=== PATIENT | female | born 1960 | race Caucasian/White ===

== ENCOUNTER 2020-02-19 13:36 | Inpatient (IN) | payer MEDICARE, MEDICAID ==
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
[2020-02-19 14:52] LABS: PTT,PARTIAL THROMBOPLSTIN TIME 25.7 SEC (24.5-32.8)
[2020-02-19 15:02] LABS: CHLORIDE,CL 103 mmol/L (98-107); SODIUM,NA 141 mmol/L (136-145)
[2020-02-19] MEDS ORDERED: cefTRIAXone 1 GM in Sodium Chloride 0.9% 100 ML IV ONE (16:47)
[2020-02-19] MEDS ORDERED: Temazepam 15 MG Cap PO PRN (19:45)
[2020-02-19] MEDS ORDERED: Acetaminophen 325 MG Tab PO PRN (19:45)
[2020-02-19] MEDS ORDERED: Albuterol 0.083% 2.5 MG/3 ML Neb Soln INH PRN (19:48)
[2020-02-19] MEDS ORDERED: Albuterol/Ipratropium 3.0-0.5 MG/3 ML Neb Soln NEB PRN (19:53)
[2020-02-19] MEDS: cefTRIAXone 1 GM in Sodium Chloride 0.9% 100 ML IV SCH (20:48)
[2020-02-19] MEDS: Furosemide 40 MG/4 ML VIAL IVPUSH SCH (21:03)
[2020-02-19] MEDS: Potassium Chloride 20 MEQ Tab.ER PO SCH (21:03)
[2020-02-19] MEDS: Albuterol/Ipratropium 3.0-0.5 MG/3 ML Neb Soln NEB SCH (21:03)
[2020-02-19] MEDS: Sodium Chloride 0.9% 10 ML Syringe FLUSH PRN (21:03)
[2020-02-19] MEDS: Dextromethorphan/guaiFENesin 600-30 MG Tab.ER PO SCH (21:03)
[2020-02-19] MEDS ORDERED: Mirtazapine 30 MG Tab PO SCH (21:45)
[2020-02-20] MEDS: Albuterol/Ipratropium 3.0-0.5 MG/3 ML Neb Soln NEB SCH ×2 (01:53→08:17)
[2020-02-20] MEDS: cefTRIAXone 1 GM in Sodium Chloride 0.9% 100 ML IV SCH (05:06)
[2020-02-20] MEDS: Sodium Chloride 0.9% 10 ML Syringe FLUSH PRN ×2 (05:06→08:17)
[2020-02-20] MEDS ORDERED: Levothyroxine 112 MCG Tab PO SCH (07:30)
[2020-02-20] MEDS ORDERED: COLESTIPOL PO SCH (08:00)
[2020-02-20] MEDS ORDERED: Omeprazole 20 MG Cap.CR PO SCH (08:00)
[2020-02-20] MEDS ORDERED: Non-Formulary Medication 1 Each (Mirtazapine [Mirtazapine] 45 MG) PO SCH (08:00)
[2020-02-20] MEDS ORDERED: PARoxetine 20 MG Tab PO SCH (08:00)
[2020-02-20] MEDS ORDERED: Cholecalciferol (Vitamin D3) 25 MCG Tab PO SCH (08:00)
[2020-02-20] MEDS ORDERED: Metoprolol Succinate 25 MG Tab.ER PO SCH (08:00)
[2020-02-20 08:15] VITALS: BP 109/85; PULSE 82
[2020-02-20] MEDS: Potassium Chloride 20 MEQ Tab.ER PO SCH (08:16)
[2020-02-20] MEDS: Dextromethorphan/guaiFENesin 600-30 MG Tab.ER PO SCH (08:16)
[2020-02-20] MEDS: Furosemide 40 MG/4 ML VIAL IVPUSH SCH (08:17)
[2020-02-20 08:48] LABS: HEMOGLOBIN A1C 5.8 % (4.3-5.7)
--- NOTE | 2020-02-20 09:52 | PCM.DCSUM1 ---
Discharge Summary - Hospital Course HPI Initial Comments: See emergency room note/admission H&P Brief History: See emergency room note/admission H&P Diagnosis: Stroke: Yes Modified [place] Scale: Mod.Sev.Disability ;Unable to Walk/Attend Bodily Needs W/O Assistance Modified [place] Scale Score: 4 - Discharge Data Discharge Date: 02/20/20 Discharge Disposition: DC/Tfer to Acute Hospital 02 Condition: Fair - Referral to Home Health Primary Care Physician: Mary Montaño NP - Discharge Diagnosis/Problem(s) (1) CVA (cerebral vascular accident) SNOMED Code(s): 814945642 ICD Code: I63.9 - CEREBRAL INFARCTION, UNSPECIFIED Status: Acute Priority: High Current Visit: Yes Onset Date: ~02/20/20 Problem Details: Patient had difficulty with ambulation secondary to her right hip and leg pain yesterday with negative CT scan for hip fracture, etc.. During the course of the evening the patient began experiencing some increased right-sided spasms and weakness with change in neurological status as below. CT scan of the head this morning was negative for acute changes. Telephone consultation at 09:[address] Lopez, stroke neurologist, and Dr. Worthy, hospitalist, who do accept the patient for direct admission into their facility, with no further treatment recommendations given. MRI/MRA of the brain and neck apparently to be performed shortly after admission. Vital signs and clinical exam were stable at time of transfer. Ambulance transfer with high density talc coater operator accompaniment. Previous traumatic brain injury as per emergency room note, however no history of head injury at time of fall prior to admission. Qualifiers: CVA mechanism: unspecified Qualified Code(s): I63.9 - Cerebral infarction, unspecified (2) CHF (congestive heart failure) SNOMED Code(s): 54697019 ICD Code: I50.9 - HEART FAILURE, UNSPECIFIED Status: Acute Priority: High Current Visit: Yes Problem Details: Mild CHF with no chest pain or anginal type symptoms throughout this hospitalization, however the patient is a somewhat poor historian secondary to her baseline mental deficits.. Negative workup for acute MS to this point. Consider cardiology consultation, echocardiogram, etc. by accepting providers. Some mild hypokalemia with adjustment of her IV Lasix and potassium therapy by accepting providers. No significant CHF by clinical exam today with normal BNP. Qualifiers: Heart failure type: combined systolic and diastolic Heart failure chronicity: acute on chronic Qualified Code(s): I50.43 - Acute on chronic combined systolic (congestive) and diastolic (congestive) heart failure (3) COPD (chronic obstructive pulmonary disease) SNOMED Code(s): 28244547 ICD Code: J44.9 - CHRONIC OBSTRUCTIVE PULMONARY DISEASE, UNSPECIFIED Status: Chronic Priority: High Current Visit: Yes Problem Details: Poss ible borderline pneumonia by chest x-ray, however patient is afebrile. IV Rocephin initiated in the emergency room for her cellulitis, which should also be beneficial for any existing pneumonia. Unable to obtain a sputum specimen. Patient was treated with DuoNeb treatments during this hospitalization. No known COVID-19 exposure with consideration of rapid screen evaluation and possible d- dimer secondary to her neurological findings as above. Qualifiers: COPD type: emphysema Emphysema type: panlobular Qualified Code(s): J43.1 - Panlobular emphysema (4) Cellulitis SNOMED Code(s): 869425405 ICD Code: L03.90 - CELLULITIS, UNSPECIFIED Status: Acute Priority: High Current Visit: Yes Problem Details: As above. Wound specimen for culture and sensitivity was obtained. Qualifiers: Site of cellulitis: trunk Site of cellulitis of trunk: abdominal wall Qualified Code(s): L03.311 - Cellulitis of abdominal wall (5) Cognitive impairment SNOMED Code(s): 655296338 ICD Code: R41.89 - OTH SYMPTOMS AND SIGNS W COGNITIVE FUNCTIONS AND AWARENESS Status: Chronic Priority: Medium Current Visit: Yes Problem Details: Patient lives alone with poor ambulation, etc. at this time. Initiate PT and OT. Consider swing bed care. Patient likely has difficulties with her ADLs with care management consultation needed. (6) Hyperlipidemia SNOMED Code(s): 69524868 ICD Code: E78.5 - HYPERLIPIDEMIA, UNSPECIFIED Status: Chronic Priority: High Current Visit: Yes Problem Details: Lipid panel and glycosylated hemogl obin on 02/19 were normal. Qualifiers: Hyperlipidemia type: unspecified Qualified Code(s): E78.5 - Hyperlipidemia, unspecified (7) Mixed anxiety depressive disorder SNOMED Code(s): 363045817 ICD Code: F41.8 - OTHER SPECIFIED ANXIETY DISORDERS Status: Chronic Priority: High Current Visit: Yes Problem Details: Poor control. Medication adjustments need to be considered by accepting providers. (8) HTN, Benign hypertension SNOMED Code(s): 79946496 ICD Code: I10 - ESSENTIAL (PRIMARY) HYPERTENSION Status: Chronic Priority: Medium Current Visit: Yes Problem Details: Blood Pressures under good control during this hospitalization. Continue to observe closely secondary to her CHF as above. (9) Peptic reflux disease SNOMED Code(s): 560707272 ICD Code: K21.9 - GASTRO-ESOPHAGEAL REFLUX DISEASE WITHOUT ESOPHAGITIS Status: Chronic Priority: Medium Current Visit: Yes Problem Details: Stable by history. (10) Hypokalemia SNOMED Code(s): 22373218 ICD Code: E87.6 - HYPOKALEMIA Status: Acute Priority: Medium Current Visit: Yes Onset Date: 02/20/20 Problem Details: Medication adjustment as above by accepting providers. (11) Renal insufficiency SNOMED Code(s): 702853424, 457529370 ICD Code: N28.9 - DISORDER OF KIDNEY AND URETER, UNSPECIFIED Status: Chronic Priority: Medium Current Visit: Yes Problem Details: Mildly progressive creatinine elevation secondary to IV Lasix therapy. Continue to observe her renal status closely. - Patient Summary/Data Operative Procedure(s) Performed: None Complications: Suspected CVA as above Consults: Consultations 02/19/20 19:50 OT Evaluation and Treatment [CONS] Routine PT Evaluation and Treatment [CONS] Routine 02/19/20 19:51 Consult to Case Management/Drop Hammer Set Up Operator [CONS] Routine Stroke neurologist and hospitalist as above. Labs Pending at D/C: 1. Final Report of CT of the head on 02/20/20 2. Abdominal wound culture and sensitivity Recommended Follow-up Testing/Procedures: Per accepting providers Planned Operative Procedure(s) after DC: None Hospital Course: The patient was admitted to inpatient/acute care with aggressive treatment of his CHF, COPD, and possible beginning pneumonia. Patient did respond extremely well to this therapy, however developed strep type symptoms during the course of the evening as above. Examination difficult secondary to patient's baseline cognitive impairment, emotional status, etc.. Further workup by accepting providers with possible future swing bed care in this facility. - Patient Instructions Diet: NPO Activity: Bedrest Driving: Do Not Drive Showering/Bathing: No Showering Notify Provider of: Fever, Increased Pain, Nausea and/or Vomiting - Discharge Plan *PRESCRIPTION DRUG MONITORING PROGRAM REVIEWED*: Not Applicable *COPY OF PRESCRIPTION DRUG MONITORING REPORT IN PATIENT NIR: Not Applicable Home Medications: Home Meds Metoprolol Succinate [Toprol XL] 25 mg PO DAILY 10/18/13 [History] atorvaSTATin [Lipitor] 40 mg PO BEDTIME 10/18/13 [History] Cholecalciferol (Vitamin D3) [Vitamin D3] 1,000 unit PO DAILY 02/01/14 [History] Cranberry Fruit Extract/Vit C [Azo Cranberry Softgel] 1 each PO DAILY 09/20/15 [History] Multivitamin [Multivitamins] 1 each PO DAILY 09/20/15 [History] Lysine 1,000 mg PO ASDIRECTED PRN 01/22/16 [History] Ranitidine [Zantac] 150 mg PO TID PRN 01/22/16 [History] Colestipol [Colestipol HCl] 1 tab PO DAILY 02/19/20 [History] Levothyroxine 112 mcg PO ACBREAKFAST 02/19/20 [History] Mirtazapine 45 mg PO BEDTIME 02/19/20 [History] Omeprazole 20 mg PO DAILY 02/19/20 [History] PARoxetine HCL [Paroxetine HCl] 40 mg PO DAILY 02/19/20 [History] Potassium Chloride 10 meq PO DAILY 02/19/20 [History] Oxygen Therapy Mode: Room Air Forms: ED Department Discharge, Interfacility Transfer EMTALA Referrals: Mary Montaño NP [Primary Care Provider] - - Discharge Summary/Plan Comment DC Time >30 min.: Yes (Coordination of care ) Discharge Summary/Plan Comment: As above. Extensive precautions were given to the patient, who is in agreement with the treatment plan. Ambulance transfer with high density talc coater operator accompaniment as above. - General Info Date of Service: 02/20/20 Admission Dx/Problem (Free Text: 1. CHF 2. COPD was possible beginning pneumonia 3. Right hip pain Functional Status: Reports: Pain Controlled, Tolerating Diet, Urinating, New Symptoms (Right hemiparesisnew), Incentive Spirometry. Denies: Ambulating (Unsteady) Numeric/FACES Score: 3 - Review of Systems General: Reports: Weakness (Progressive right-sided). Denies: Fever, Fatigue, Malaise, Chills, Night Sweats, Appetite (Good) HEENT: Reports: Glasses. Denies: Dysphasia, Ear Pain, Eye Pain, Headaches, Sinus Congestion, Sore Throat, Rhinitis, Visual Changes Pulmonary: Reports: Shortness of Breath (Improved). Denies: Pleuritic Chest Pain, Cough, Hemoptysis, Wheezing Cardiovascular: Reports: Edema (Dependent). Denies: Chest Pain, Palpitations, Dyspnea on Exertion, Orthopnea, Lightheadedness Gastrointestinal: Reports: No Symptoms. Denies: Abdominal Pain, Constipation, Decreased Appetite, Diarrhea, Difficulty Swallowing, Hematochezia, Melena, Nausea, Vomiting Genitourinary: Reports: No Symptoms. Denies: Dysuria, Frequency, Burning, Urgency, Incontinence, Hematuria, Flank Pain Musculoskeletal: Reports: Leg Pain (Right hip). Denies: Neck Pain, Shoulder Pain, Arm Pain, Back Pain Skin: Reports: Other (Stable multiple abrasions and abdominal ulcer). Denies: Diaphoresis Neurological: Reports: Confusion (Borderline with baseline mental/cognition deficit), Numbness (Right-sided), Paresthesia (As above), Tingling, Trouble Speaking (Baseline?), Difficulty Walking, Weakness (Right-sided), Gait Disturbance. Denies: Dizziness, Headache, Seizure, Syncope Psychiatric: Reports: Confusion, Depression (Moderate), Anxiety (Moderate). Denies: Agitation, Cravings, Hallucinations - Patient Data Vitals - Most Recent: Last Vital Signs Temp 36.7 C 02/20/20 08:00 Pulse 82 02/20/20 08:16 Resp 20 02/20/20 08:00 BP 109/85 02/20/20 08:16 Pulse Ox 95 02/20/20 08:00 Vital Signs - 24 hr 02/19/20 02/19/20 02/19/20 14:03 20:00 23:12 Temperature [ 36.6 C 36.8 C Oral] Temperature [ 36.8 C Temporal] Pulse, Peripheral Pulse, 79 74 82 Peripheral [ Left Pulse Oximetry] Respiratory 20 14 20 Rate Blood Pressure Blood Pressure 131/69 117/67 122/65 [Right Upper Arm] O2 Sat by Pulse 96 94 L 95 Oximetry 02/20/20 02/20/20 02/20/20 04:00 08:00 08:16 Temperature [ 36.9 C 36.7 C Oral] Temperature [ Temporal] Pulse, 82 Peripheral Pulse, 80 82 Peripheral [ Left Pulse Oximetry] Respiratory 20 20 Rate Blood Pressure 109/85 Blood Pressure 120/72 109/85 [Right Upper Arm] O2 Sat by Pulse 97 95 Oximetry Weight - Most Recent: 98.43 kg I&O - Last 24 hours: Intake & Output 02/19/20 02/20/20 02/20/20 22:59 06:59 14:59 Intake Total 400 Output Total 900 Balance -500 Imaging Impressions - Last 24 hrs: alarm security or surveillance monitor shows a normal sinus rhythm with rate in the 90s with no ectopy or arrhythmia Chest x-ray, portable, on 02/19/20 indicates some COPD changes with some possible mild centralized CHF and/or additional possible pulmonary infiltrates. Cardiomegaly with no pneumothorax, etc. X-rays of the pelvis, one view, and 2 lateral views of the right hip, on 02/19/20 shows no evidence of fracture with moderate osteoarthritic changes. CT of the right hip on 02/19/20 shows osteoarthritic changes with no fracture. Telephone consultation at 09:20 hours with the radiology department at [facility]. Preliminary verbal report of noncontrast CT scan of the head was negative for acute changes. Lab Results - Last 24 hrs: Laboratory Results - last 24 hr 02/19/20 02/19/20 02/19/20 Range/Units 14:30 14:30 14:30 WBC 11.4 H (4.0-10.2) K/uL RBC 4.52 (3.77-5.09) M/uL Hgb 12.9 (11.7-15.5) g/dL Hct 39.4 (34.0-46.0) % MCV 87.2 (84.0-98.0) fL MCH 28.5 (28.2-33.3) pg MCHC 32.7 (31.7-36.0) g/dL RDW 13.8 (11.2-14.1) % Plt Count 230 (150-350) K/uL Neut % (Auto) 74.1 (45.0-80.0) % Lymph % (Auto) 12.6 (10.0-50.0) % Kendall % (Auto) 8.2 (2.0-14.0) % Eos % (Auto) 4.0 (0.0-5.0) % Baso % (Auto) 1.1 (0.0-2.0) % Neut # (Auto) 8.43 H (1.40-7.00) K/uL Lymph # (Auto) 1.43 (0.50-3.50) K/uL [place] # (Auto) 0.93 (0.00-1.00) K/uL Eos # (Auto) 0.45 (0.00-0.50) K/uL Baso # (Auto) 0.12 (0.00-0.20) K/uL PT 10.0 (9.5-12.0) SEC INR 1.0 APTT 25.7 (24.5-32.8) SEC Sodium 141 (136-145) mmol/L Potassium 3.7 (3.5-5.1) mmol/L Chloride 103 (98-107) mmol/L Carbon Dioxide 31.4 (21.0-32.0) mmol/L BUN 15 (7-18) mg/dL Creatinine 1.19 H (0.51-1.17) mg/dL Est Cr Clr Drug Dosing TNP Estimated GFR (MDRD) 47 mL/min Glucose 108 H (74-106) mg/dL Hemoglobin A1c (4.3-5.7) % Calcium 9.4 (8.5-10.1) mg/dL Magnesium 2.1 (1.8-2.4) mg/dL Total Bilirubin 0.5 (0.2-1.0) mg/dL AST 24 (15-37) U/L ALT 28 (12-78) U/L Alkaline Phosphatase 203 H (46-116) IU/L Creatine Kinase 57 (26-308) U/L Creatine Kinase Index 0.9 (0.0-2.5) % CK-MB (CK-2) 0.50 (0.00-3.60) ng/mL Troponin I 0.000 (0.000-0.056) ng/mL NT-Pro-B Natriuret Pep 109 (0-125) pg/mL Total Protein 7.7 (6.4-8.2) g/dL Albumin 3.6 (3.4-5.0) g/dL Triglycerides (30-150) mg/dL Cholesterol (100-200) mg/dL LDL Cholesterol, Calc (0-100) mg/dL HDL Cholesterol (40-60) mg/dL 02/20/20 02/20/20 02/20/20 Range/Units 07:10 07:10 07:10 WBC 9.9 (4.0-10.2) K/uL RBC 4.27 (3.77-5.09) M/uL Hgb 12.1 (11.7-15.5) g/dL Hct 37.9 (34.0-46.0) % MCV 88.8 (84.0-98.0) fL MCH 28.3 (28.2-33.3) pg MCHC 31.9 (31.7-36.0) g/dL RDW 14.2 H (11.2-14.1) % Plt Count 209 (150-350) K/uL Neut % (Auto) 73.6 (45.0-80.0) % Lymph % (Auto) 12.8 (10.0-50.0) % Kendall % (Auto) 9.2 (2.0-14.0) % Eos % (Auto) 3.5 (0.0-5.0) % Baso % (Auto) 0.9 (0.0-2.0) % Neut # (Auto) 7.28 H (1.40-7.00) K/uL Lymph # (Auto) 1.27 (0.50-3.50) K/uL [place] # (Auto) 0.91 (0.00-1.00) K/uL Eos # (Auto) 0.35 (0.00-0.50) K/uL Baso # (Auto) 0.09 (0.00-0.20) K/uL PT (9.5-12.0) SEC INR APTT (24.5-32.8) SEC Sodium 143 (136-145) mmol/L Potassium 3.4 L (3.5-5.1) mmol/L Chloride 102 (98-107) mmol/L Carbon Dioxide 32.3 H (21.0-32.0) mmol/L BUN 18 (7-18) mg/dL Creatinine 1.34 H (0.51-1.17) mg/dL Est Cr Clr Drug Dosing 34.95 Estimated GFR (MDRD) 41 mL/min Glucose 104 (74-106) mg/dL Hemoglobin A1c 5.8 H (4.3-5.7) % Calcium 9.3 (8.5-10.1) mg/dL Magnesium (1.8-2.4) mg/dL Total Bilirubin 0.5 (0.2-1.0) mg/dL AST 22 (15-37) U/L ALT 25 (12-78) U/L Alkaline Phosphatase 188 H (46-116) IU/L Creatine Kinase 273 (26-308) U/L Creatine Kinase Index 1.3 (0.0-2.5) % CK-MB (CK-2) 3.50 (0.00-3.60) ng/mL Troponin I 0.000 (0.000-0.056) ng/mL NT-Pro-B Natriuret Pep 52 (0-125) pg/mL Total Protein 7.2 (6.4-8.2) g/dL Albumin 3.4 (3.4-5.0) g/dL Triglycerides 115 (30-150) mg/dL Cholesterol 200 (100-200) mg/dL LDL Cholesterol, Calc 117 H (0-100) mg/dL HDL Cholesterol 60 (40-60) mg/dL Laboratory Tests 02/19/20 02/19/20 02/19/20 Range/Units 14:30 14:30 14:30 WBC 11.4 H (4.0-10.2) K/uL RBC 4.52 (3.77-5.09) M/uL Hgb 12.9 (11.7-15.5) g/dL Hct 39.4 (34.0-46.0) % MCV 87.2 (84.0-98.0) fL MCH 28.5 (28.2-33.3) pg MCHC 32.7 (31.7-36.0) g/dL RDW 13.8 (11.2-14.1) % Plt Count 230 (150-350) K/uL Neut % (Auto) 74.1 (45.0-80.0) % Lymph % (Auto) 12.6 (10.0-50.0) % Kend[place] % (Auto) 8.2 (2.0-14.0) % Eos % (Auto) 4.0 (0.0-5.0) % Baso % (Auto) 1.1 (0.0-2.0) % Neut # (Auto) 8.43 H (1.40-7.00) K/uL Lymph # (Auto) 1.43 (0.50-3.50) K/uL [place] # (Auto) 0.93 (0.00-1.00) K/uL Eos # (Auto) 0.45 (0.00-0.50) K/uL Baso # (Auto) 0.12 (0.00-0.20) K/uL PT 10.0 (9.5-12.0) SEC INR 1.0 APTT 25.7 (24.5-32.8) SEC Sodium 141 (136-145) mmol/L Potassium 3.7 (3.5-5.1) mmol/L Chloride 103 (98-107) mmol/L Carbon Dioxide 31.4 (21.0-32.0) mmol/L BUN 15 (7-18) mg/dL Creatinine 1.19 H (0.51-1.17) mg/dL Est Cr Clr Drug Dosing TNP Estimated GFR (MDRD) 47 mL/min Glucose 108 H (74-106) mg/dL Hemoglobin A1c (4.3-5.7) % Calcium 9.4 (8.5-10.1) mg/dL Magnesium 2.1 (1.8-2.4) mg/dL Total Bilirubin 0.5 (0.2-1.0) mg/dL AST 24 (15-37) U/L ALT 28 (12-78) U/L Alkaline Phosphatase 203 H (46-116) IU/L Creatine Kinase 57 (26-308) U/L Creatine Kinase Index 0.9 (0.0-2.5) % CK-MB (CK-2) 0.50 (0.00-3.60) ng/mL Troponin I 0.000 (0.000-0.056) ng/mL NT-Pro-B Natriuret Pep 109 (0-125) pg/mL Total Protein 7.7 (6.4-8.2) g/dL Albumin 3.6 (3.4-5.0) g/dL Triglycerides (30-150) mg/dL Cholesterol (100-200) mg/dL LDL Cholesterol, Calc (0-100) mg/dL HDL Cholesterol (40-60) mg/dL 02/20/20 02/20/20 02/20/20 Range/Units 07:10 07:10 07:10 WBC 9.9 (4.0-10.2) K/uL RBC 4.27 (3.77-5.09) M/uL Hgb 12.1 (11.7-15.5) g/dL Hct 37.9 (34.0-46.0) % MCV 88.8 (84.0-98.0) fL MCH 28.3 (28.2-33.3) pg MCHC 31.9 (31.7-36.0) g/dL RDW 14.2 H (11.2-14.1) % Plt Count 209 (150-350) K/uL Neut % (Auto) 73.6 (45.0-80.0) % Lymph % (Auto) 12.8 (10.0-50.0) % Kendall % (Auto) 9.2 (2.0-14.0) % Eos % (Auto) 3.5 (0.0-5.0) % Baso % (Auto) 0.9 (0.0-2.0) % Neut # (Auto) 7.28 H (1.40-7.00) K/uL Lymph # (Auto) 1.27 (0.50-3.50) K/uL [place]all # (Auto) 0.91 (0.00-1.00) K/uL Eos # (Auto) 0.35 (0.00-0.50) K/uL Baso # (Auto) 0.09 (0.00-0.20) K/uL PT (9.5-12.0) SEC INR APTT (24.5-32.8) SEC Sodium 143 (136-145) mmol/L Potassium 3.4 L (3.5-5.1) mmol/L Chloride 102 (98-107) mmol/L Carbon Dioxide 32.3 H (21.0-32.0) mmol/L BUN 18 (7-18) mg/dL Creatinine 1.34 H (0.51-1.17) mg/dL Est Cr Clr Drug Dosing 34.95 Estimated GFR (MDRD) 41 mL/min Glucose 104 (74-106) mg/dL Hemoglobin A1c 5.8 H (4.3-5.7) % Calcium 9.3 (8.5-10.1) mg/dL Magnesium (1.8-2.4) mg/dL Total Bilirubin 0.5 (0.2-1.0) mg/dL AST 22 (15-37) U/L ALT 25 (12-78) U/L Alkaline Phosphatase 188 H (46-116) IU/L Creatine Kinase 273 (26-308) U/L Creatine Kinase Index 1.3 (0.0-2.5) % CK-MB (CK-2) 3.50 (0.00-3.60) ng/mL Troponin I 0.000 (0.000-0.056) ng/mL NT-Pro-B Natriuret Pep 52 (0-125) pg/mL Total Protein 7.2 (6.4-8.2) g/dL Albumin 3.4 (3.4-5.0) g/dL Triglycerides 115 (30-150) mg/dL Cholesterol 200 (100-200) mg/dL LDL Cholesterol, Calc 117 H (0-100) mg/dL HDL Cholesterol 60 (40-60) mg/dL SYED Results - Last 24 hrs: Microbiology 02/19/20 14:10 Gram Stain - Final Abdomen - Wound - Superficial Med Orders - Current: Current Medications Acetaminophen (Tylenol) 650 mg PO Q4H PRN PRN Reason: Pain Last Admin: 02/19/20 23:08 Dose: 650 mg Documented by: Albuterol (Proventil Neb Soln) 2.5 mg INH Q2H PRN PRN Reason: SHORTNESS OF BREATH Albuterol/Ipratropium (Duoneb 3.0-0.5 Mg/3 Ml) 3 ml NEB Q6HRRT [facility] Last Admin: 02/20/20 08:17 Dose: 3 ml Documented by: Albuterol/Ipratropium (Duoneb 3.0-0.5 Mg/3 Ml) 3 ml NEB Q4HRRT PRN PRN Reason: Dyspnea Atorvastatin Calcium (Lipitor) 40 mg PO BEDTIME [facility] Cholecalciferol (Vitamin D3) 25 mcg PO DAILY [facility] Last Admin: 02/20/20 08:16 Dose: 25 mcg Documented by: Furosemide (Lasix) 40 mg IVPUSH BID [facility] Last Admin: 02/20/20 08:17 Dose: 40 mg Documented by: Guaifenesin/Dextromethorphan (Mucinex Dm Er 600-30 Mg) 1 tab PO BID [facility] Last Admin: 02/20/20 08:16 Dose: 1 tab Documented by: Ceftriaxone Sodium 1 gm/ (Sodium Chloride) 100 mls @ 200 mls/hr IV Q12H [facility] Last Admin: 02/20/20 05:06 Dose: 200 mls/hr Documented by: Levothyroxine Sodium (Levothyroxine) 112 mcg PO ACBREAKFAST [facility] Last Admin: 02/20/20 08:17 Dose: 112 mcg Documented by: Metoprolol Succinate (Toprol Xl) 25 mg PO DAILY [facility] Last Admin: 02/20/20 08:16 Dose: 25 mg Documented by: Mirtazapine (Remeron) 45 mg PO BEDTIME [facility] Last Admin: 02/19/20 22:17 Dose: 45 mg Documented by: Non-Formulary Medication (Colestipol) 1 tab PO DAILY [facility] Omeprazole (Omeprazole) 20 mg PO DAILY [facility] Last Admin: 02/20/20 08:16 Dose: 20 mg Documented by: Paroxetine HCl (Paxil) 40 mg PO DAILY [facility] Last Admin: 02/20/20 08:17 Dose: 40 mg Documented by: Potassium Chloride (Klor-Con M20) 20 meq PO BID [facility] Last Admin: 02/20/20 08:16 Dose: 20 meq Documented by: Sodium Chloride (Saline Flush) 10 ml FLUSH Q12HR PRN PRN Reason: Keep Vein Open Last Admin: 02/20/20 08:17 Dose: 10 ml Documented by: Temazepam (Restoril) 15 mg PO BEDTIME PRN PRN Reason: Insomnia Last Admin: 02/19/20 23:09 Dose: 15 mg Documented by: Discontinued Medications Ceftriaxone Sodium 1 gm/ (Sodium Chloride) 100 mls @ 200 mls/hr IV ONETIME ONE Stop: 02/19/20 17:16 Last Admin: 02/19/20 16:53 Dose: 200 mls/hr Documented by: Non-Formulary Medication (Mirtazapine [Mirtazapine]) 45 mg PO DAILY LEDA - Exam Quality Assessment: Reports: DVT Prophylaxis General: Reports: Alert, No Acute Distress. Denies: Oriented (Oriented 2) HEENT: Reports: Pupils Equal, Pupils Reactive, EOMI, Mucous Membr. Moist/[place]. Denies: Scleral Icterus Neck: Reports: Supple, Trachea Midline, No JVD, No Thyromegaly, +2 Carotid Pulse wo Bruit. Denies: Lymphadenopathy Lungs: Reports: Clear to Auscultation, Normal Respiratory Effort. Denies: Rub Cardiovascular: Reports: Regular Rate, Regular Rhythm, No Murmurs. Denies: Gallops, Rubs GI/Abdominal Exam: Normal Bowel Sounds, Soft, Non-Tender, No Organomegaly, No Distention, No Abnormal Bruit, No Mass, Pelvis Stable, Other (Obese; stable grade 2, 1 cm in diameter incisional ulceration with no acute drainage. Moderate obesity). No: Guarding (Female) Exam: Deferred Rectal (Female) Exam: Deferred Back Exam: Reports: Normal Inspection, Full Range of Motion. Denies: CVA Tenderness (L), CVA Tenderness (R), Muscle Spasm Extremities: Pedal Edema (Trace+1 bilateral pedal/pretibial edema), Limited Range of Motion (Right hip secondary to discomfort with no instability, crepit ation, etc.). No: Heber's Sign Skin: Reports: Other (Abdominal ulcer as above with multiple areas of vitiligo and superficial abrasion/ulcerations as per emergency room note) Wound/Incisions: Reports: Dressing Dry and Intact, No Drainage, Erythema Improving Neurological: Reports: Other (Mild to moderate right-sided hemiparesis with dystaxia, confusion, and positive right sided Babinski's. Patient unable to perform right-sided finger to nose test. Borderline specificity. No tongue deviation, etc.) Psy/Mental Status: Reports: Alert, Anxious (Moderate), Depressed (Moderate). Denies: Agitated, Hallucinations, Withdrawal Symptoms EKG INTERPRETATION EKG Date: 02/20/20 Time: 07:24 Rhythm: NSR Rate (Beats/Min): 79 [place]: Normal (Left) P-Wave: Enlarged (Diffuse biphasic- mild) QRS: RBBB (0.10 seconds representing a stable borderline incomplete right bundle branch block) ST-T: Other (Stable T-wave and inversions in lead 3 and V1 with possible extension of previous nonspecific T-wave inversions from leads V4V6 to V2.) QT: Prolonged (426/488 ms) DC/PQ Interval: 0.13 seconds representing a short DC interval with no delta waves noted. Poor R-wave progression in the anterior leads. Comparison: Change From Previous EKG (As above since 02/19/20) EKG Interpretation Comments: 1. Possible anterolateral cardiac ischemia 2. Short DC interval 3. Incomplete right bundle branch block 4. Left atrial enlargement
[2020-02-20] MEDS ORDERED: atorvaSTATin 40 MG Tab PO SCH (20:00)
== END 2020-02-20 10:45 | DRG 291 ==
LOC: LL.ED 13:36 → LL.MS 17:00 → UNDOADMIN 17:00 → LL.MS 19:41 → UNDODISIN 02-20 10:45
PROVIDERS: ADMIT Family Medicine; ATTEND Family Medicine
DX: I13.0 Hypertensive heart and chronic kidney disease with heart failure and stage 1 through stage 4 chronic kidney disease, or unspecified chronic kidney disease (principal); I50.43 Acute on chronic combined systolic (congestive) and diastolic (congestive) heart failure; J18.9 Pneumonia, unspecified organism; L03.311 Cellulitis of abdominal wall; N18.9 Chronic kidney disease, unspecified; E03.9 Hypothyroidism, unspecified; I25.10 Atherosclerotic heart disease of native coronary artery without angina pectoris; J43.1 Panlobular emphysema; E78.5 Hyperlipidemia, unspecified; G31.84 Mild cognitive impairment of uncertain or unknown etiology; H54.7 Unspecified visual loss; I42.9 Cardiomyopathy, unspecified; E78.00 Pure hypercholesterolemia, unspecified; Z87.01 Personal history of pneumonia (recurrent); G47.33 Obstructive sleep apnea (adult) (pediatric); J84.10 Pulmonary fibrosis, unspecified; K44.9 Diaphragmatic hernia without obstruction or gangrene; M19.90 Unspecified osteoarthritis, unspecified site; K57.30 Diverticulosis of large intestine without perforation or abscess without bleeding; G89.29 Other chronic pain; M54.9 Dorsalgia, unspecified; E05.90 Thyrotoxicosis, unspecified without thyrotoxic crisis or storm; E66.9 Obesity, unspecified; F41.8 Other specified anxiety disorders; M25.551 Pain in right hip; Z90.79 Acquired absence of other genital organ(s); Z90.722 Acquired absence of ovaries, bilateral; Z87.891 Personal history of nicotine dependence; F10.21 Alcohol dependence, in remission; F15.21 Other stimulant dependence, in remission; Z88.1 Allergy status to other antibiotic agents; Z79.890 Hormone replacement therapy; K21.9 Gastro-esophageal reflux disease without esophagitis; E87.6 Hypokalemia; Z79.899 Other long term (current) drug therapy; Z90.49 Acquired absence of other specified parts of digestive tract; Z90.710 Acquired absence of both cervix and uterus
CPT/HCPCS: 36415; 71045; 73502; 73700; 80053; 82550; 82553; 83735; 83880; 84484; 85025; 85610; 85730; 87070; 87205; 93005; J0696; J7050; 51702; 70450; 80061; 83036; 87077; 94640; 99285-25; A9270-GY; J1940; J7620-GY

== ENCOUNTER 2020-08-16 08:45 | Emergency (ER) | payer MEDICARE, MEDICAID ==
[2020-08-16] MEDS ORDERED: Sodium Chloride 0.9% 1,000 ML IV ONE (08:50)
[2020-08-16] MEDS ORDERED: Sodium Chloride 0.9% 10 ML Syringe FLUSH PRN (08:51)
[2020-08-16 09:13] VITALS: PULSE 73
[2020-08-16 09:29] VITALS: BP 113/62
[2020-08-16 09:36] LABS: CHLORIDE,CL 105 mmol/L (98-107); SODIUM,NA 140 mmol/L (136-145)
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
== END 2020-08-16 10:35 | disposition home or self-care (01) ==
LOC: LL.ED 08:45
DX: R06.02 Shortness of breath (principal); R05 Cough; R50.9 Fever, unspecified; I11.0 Hypertensive heart disease with heart failure; I50.9 Heart failure, unspecified; I25.10 Atherosclerotic heart disease of native coronary artery without angina pectoris; E78.00 Pure hypercholesterolemia, unspecified; J44.9 Chronic obstructive pulmonary disease, unspecified; F41.9 Anxiety disorder, unspecified; F32.9 Major depressive disorder, single episode, unspecified; E66.9 Obesity, unspecified; E05.90 Thyrotoxicosis, unspecified without thyrotoxic crisis or storm; Z90.49 Acquired absence of other specified parts of digestive tract; Z90.710 Acquired absence of both cervix and uterus; Z20.822 Contact with and (suspected) exposure to COVID-19; Z88.1 Allergy status to other antibiotic agents; Z79.82 Long term (current) use of aspirin; Z79.899 Other long term (current) drug therapy
CPT/HCPCS: 36415; 71045; 80053; 83605; 85025; 87804; 99283; 99285-25; J7030; U0002

== ENCOUNTER 2020-08-24 09:06 | Emergency (ER) | payer MEDICARE, MEDICAID ==
[2020-08-24] MEDS ORDERED: Sodium Chloride 0.9% 1,000 ML IV ONE (09:20)
[2020-08-24] MEDS ORDERED: Norflurane/HFc 245FA Medium Stream Spray 103.5 ML Can TOP PRN (10:07)
[2020-08-24] MEDS ORDERED: Iopamidol 755 Mg/ML 100 ML Bottle IVPUSH STA (10:45)
[2020-08-24] MEDS ORDERED: Iopamidol 755 Mg/ML 100 ML Bottle ONE (10:48)
[2020-08-24 10:53] VITALS: BP 104/68; PULSE 92
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
== END 2020-08-24 12:15 | disposition home or self-care (01) ==
LOC: LL.ED 09:06
DX: R05 Cough (principal); R19.7 Diarrhea, unspecified; R11.2 Nausea with vomiting, unspecified; R10.9 Unspecified abdominal pain; I11.0 Hypertensive heart disease with heart failure; I50.9 Heart failure, unspecified; I25.10 Atherosclerotic heart disease of native coronary artery without angina pectoris; E78.00 Pure hypercholesterolemia, unspecified; J44.9 Chronic obstructive pulmonary disease, unspecified; E66.9 Obesity, unspecified; Z88.1 Allergy status to other antibiotic agents; Z79.82 Long term (current) use of aspirin; Z79.899 Other long term (current) drug therapy; Z68.42 Body mass index [BMI] 45.0-49.9, adult
CPT/HCPCS: 36415; 71275; 80053; 83690; 85025; 85379; 99283; 99284-25; J7030; Q9967

== ENCOUNTER 2022-07-02 21:13 | Emergency (ER) | payer MEDICARE, MEDICAID ==
[2022-07-02] MEDS ORDERED: Meclizine 25 MG Tab PO ONE (22:44)
[2022-07-02 22:51] VITALS: BP 110/77; PULSE 66
== END 2022-07-02 23:00 | disposition home or self-care (01) ==
LOC: LL.ED 21:13
DX: R42 Dizziness and giddiness (principal); I25.10 Atherosclerotic heart disease of native coronary artery without angina pectoris; I11.0 Hypertensive heart disease with heart failure; I50.9 Heart failure, unspecified; E78.00 Pure hypercholesterolemia, unspecified; J44.9 Chronic obstructive pulmonary disease, unspecified; M19.90 Unspecified osteoarthritis, unspecified site; E03.9 Hypothyroidism, unspecified; E66.9 Obesity, unspecified; Z88.1 Allergy status to other antibiotic agents; Z79.82 Long term (current) use of aspirin; Z79.899 Other long term (current) drug therapy
CPT/HCPCS: 99283; 99284; A9270-GY

== ENCOUNTER 2022-09-28 10:34 | Observation (INO) | payer MEDICARE, MEDICAID ==
[2022-09-28 11:31] LABS: RESPIRATORY SYNCYTIAL VIR NAA NEGATIVE (NEGATIVE)
[2022-09-28 11:32] LABS: CORONAVIRUS COVID-19 NAA POSITIVE (NEGATIVE)
[2022-09-28 11:58] LABS: ANION GAP 15.1 meq/L (7-15); CHLORIDE,CL 101 mmol/L (98-107); ESTIMATED GFR 50 mL/min (>=60); SODIUM,NA 140 mmol/L (136-145)
[2022-09-28] MEDS ORDERED: Albuterol/Ipratropium 3.0-0.5 MG/3 ML Neb Soln NEB PRN (12:46)
[2022-09-28] MEDS ORDERED: Sodium Chloride 0.9% 10 ML Syringe FLUSH PRN (12:46)
[2022-09-28] MEDS ORDERED: Magnesium Hydroxide 400 MG/5 ML Susp 30 ML Cup PO PRN (12:46)
[2022-09-28] MEDS ORDERED: Ondansetron 4 MG Tab.DIS PO PRN (12:46)
[2022-09-28] MEDS ORDERED: Docusate Sodium 100 MG Cap PO PRN (12:50)
[2022-09-28] MEDS ORDERED: Baclofen 10 MG Tab PO PRN (12:50)
[2022-09-28] MEDS ORDERED: Potassium Chloride 10 MEQ Tab.ER PO ONE (13:41)
[2022-09-28] MEDS ORDERED: Diazepam 5 MG Tab PO PRN (15:34)
[2022-09-28] MEDS ORDERED: Potassium Chloride 10 MEQ Tab.ER ONE (16:04)
[2022-09-28] MEDS: Acetaminophen 325 MG Tab PO PRN ×2 (16:22→21:22)
[2022-09-28] MEDS ORDERED: hydrOXYzine HCl 25 MG Tab PO SCH (18:00)
[2022-09-28] MEDS: Nirmatrelvir/Ritonavir 300 MG/100 MG Dose Pack PO SCH (18:21)
[2022-09-28] MEDS ORDERED: atorvaSTATin 20 MG Tab PO SCH (20:00)
[2022-09-28] MEDS: Mirtazapine 15 MG Tab PO SCH (21:22)
[2022-09-29] MEDS ORDERED: Venlafaxine 75 MG Tab PO SCH (08:00)
[2022-09-29] MEDS ORDERED: Metoprolol Succinate 25 MG Tab.ER PO SCH (08:00)
[2022-09-29] MEDS ORDERED: COLESTIPOL PO SCH (08:00)
[2022-09-29] MEDS: Venlafaxine 75 MG Cap.ER PO SCH (09:33)
[2022-09-29] MEDS: Aspirin 81 MG Tab.Chew PO SCH (09:33)
[2022-09-29] MEDS: Omeprazole 20 MG Cap.CR PO SCH (09:33)
[2022-09-29] MEDS: Furosemide 20 MG Tab PO SCH (09:33)
[2022-09-29] MEDS: Cholecalciferol (Vitamin D3) 25 MCG Tab PO SCH (09:34)
[2022-09-29] MEDS: Levothyroxine 112 MCG Tab PO SCH (09:34)
[2022-09-29] MEDS: Potassium Chloride 10 MEQ Tab.ER PO SCH (09:34)
[2022-09-29] MEDS: metFORMIN 500 MG Tab PO SCH (09:34)
[2022-09-29] MEDS: Nirmatrelvir/Ritonavir 300 MG/100 MG Dose Pack PO SCH ×2 (09:35→17:18)
[2022-09-29] MEDS ORDERED: Sodium Chloride 0.9% 1,000 ML IV SCH (11:00)
[2022-09-29 11:26] LABS: ANION GAP 15.7 meq/L (7-15)
[2022-09-29] MEDS ORDERED: guaiFENesin/Dextromethorphan 100-10 MG/5 ML Soln 10 ML Cup PO PRN (11:30)
[2022-09-29] MEDS ORDERED: Potassium Bicarbonate/Cit Ac 20 MEQ Effervescent Tab PO ONE ×2 (11:33→20:00)
[2022-09-29] MEDS ORDERED: Potassium Bicarbonate/Cit Ac 20 MEQ Effervescent Tab ONE (15:02)
[2022-09-29] MEDS: Enoxaparin 40 MG/0.4 ML Syringe SUBCUT SCH (15:20)
[2022-09-29] MEDS: Acetaminophen 325 MG Tab PO PRN (19:35)
[2022-09-29] MEDS: Mirtazapine 15 MG Tab PO SCH (19:36)
[2022-09-29] MEDS: Benzonatate 100 MG Cap PO PRN (19:36)
[2022-09-30] MEDS: Venlafaxine 75 MG Cap.ER PO SCH (07:51)
[2022-09-30] MEDS: Aspirin 81 MG Tab.Chew PO SCH (07:51)
[2022-09-30] MEDS: Omeprazole 20 MG Cap.CR PO SCH (07:52)
[2022-09-30] MEDS: Furosemide 20 MG Tab PO SCH (07:53)
[2022-09-30] MEDS: Levothyroxine 112 MCG Tab PO SCH (07:53)
[2022-09-30] MEDS: Cholecalciferol (Vitamin D3) 25 MCG Tab PO SCH (07:53)
[2022-09-30] MEDS: Potassium Chloride 10 MEQ Tab.ER PO SCH (07:54)
[2022-09-30] MEDS: metFORMIN 500 MG Tab PO SCH (07:54)
[2022-09-30] MEDS: Enoxaparin 40 MG/0.4 ML Syringe SUBCUT SCH (07:54)
[2022-09-30] MEDS: Nirmatrelvir/Ritonavir 300 MG/100 MG Dose Pack PO SCH ×2 (08:01→18:18)
[2022-09-30] MEDS ORDERED: Potassium Bicarbonate/Cit Ac 20 MEQ Effervescent Tab PO ONE (10:00)
[2022-09-30] MEDS: Benzonatate 100 MG Cap PO PRN (20:15)
[2022-09-30] MEDS: Mirtazapine 15 MG Tab PO SCH (20:15)
[2022-09-30] MEDS: Acetaminophen 325 MG Tab PO PRN (20:15)
[2022-10-01] MEDS: Venlafaxine 75 MG Cap.ER PO SCH (08:36)
[2022-10-01] MEDS: Enoxaparin 40 MG/0.4 ML Syringe SUBCUT SCH (08:36)
[2022-10-01] MEDS: Omeprazole 20 MG Cap.CR PO SCH (08:36)
[2022-10-01] MEDS: Aspirin 81 MG Tab.Chew PO SCH (08:36)
[2022-10-01] MEDS: Potassium Chloride 10 MEQ Tab.ER PO SCH (08:36)
[2022-10-01] MEDS: Cholecalciferol (Vitamin D3) 25 MCG Tab PO SCH (08:37)
[2022-10-01] MEDS: Furosemide 20 MG Tab PO SCH (08:37)
[2022-10-01] MEDS: Levothyroxine 112 MCG Tab PO SCH (08:37)
[2022-10-01] MEDS: metFORMIN 500 MG Tab PO SCH (08:37)
[2022-10-01] MEDS: Nirmatrelvir/Ritonavir 300 MG/100 MG Dose Pack PO SCH (08:37)
[2022-10-01 08:47] VITALS: BP 129/84; PULSE 74
== END 2022-10-01 13:10 | disposition home health service (06) ==
LOC: LL.CLIN 10:34 → LL.MS 12:24
PROVIDERS: ADMIT Physician Assistant; ATTEND Emergency Medicine
DX: U07.1 COVID-19 (principal); E87.6 Hypokalemia; J20.9 Acute bronchitis, unspecified; M47.814 Spondylosis without myelopathy or radiculopathy, thoracic region; I11.0 Hypertensive heart disease with heart failure; I50.9 Heart failure, unspecified; E78.00 Pure hypercholesterolemia, unspecified; I25.10 Atherosclerotic heart disease of native coronary artery without angina pectoris; J44.9 Chronic obstructive pulmonary disease, unspecified; G47.33 Obstructive sleep apnea (adult) (pediatric); I42.9 Cardiomyopathy, unspecified; E03.9 Hypothyroidism, unspecified; E66.9 Obesity, unspecified; Z79.899 Other long term (current) drug therapy; Z79.890 Hormone replacement therapy; Z79.82 Long term (current) use of aspirin; Z98.890 Other specified postprocedural states; Z90.49 Acquired absence of other specified parts of digestive tract
CPT/HCPCS: 0241U; 36415; 71046; 80048; 80053; 83735; 83880; 84484; 85025; 85379; 86140; 96372; 97165-GO; 99214; 99223; 99232; 99238; A9270-GY; G0378; G0379; J1650; J3490

== ENCOUNTER 2023-04-01 15:15 | Emergency (ER) | payer MEDICARE, MEDICAID ==
[2023-04-01] MEDS ORDERED: Sodium Chloride 0.9% 10 ML Syringe FLUSH PRN (15:19)
[2023-04-01 15:41] LABS: BASOPHILS ABSOLUTE AUTO 0.07 K/uL (0.00-0.20); BASOPHILS PERCENT AUTO 0.6 % (0.0-2.0); EOSINOPHILS ABSOLUTE AUTO 0.33 K/uL (0.00-0.50); EOSINOPHILS PERCENT AUTO 2.6 % (0.0-5.0); HEMATOCRIT 38.7 % (34.0-46.0); HEMOGLOBIN 12.8 g/dL (11.7-15.5); LYMPHOCYTES ABSOLUTE AUTO 3.56 K/uL (0.50-3.50); LYMPHOCYTES PERCENT AUTO 28.5 % (10.0-50.0); MEAN CORPUSCULAR HEMOGLOBIN 28.8 pg (28.2-33.3); MEAN CORPUSCULAR HGB CONC 33.1 g/dL (31.7-36.0); MONOCYTES ABSOLUTE AUTO 0.86 K/uL (0.00-1.00); MONOCYTES PERCENT AUTO 6.9 % (2.0-14.0); NEUTROPHILS ABSOLUTE AUTO 7.66 K/uL (1.40-7.00); NEUTROPHILS PERCENT AUTO 61.4 % (45.0-80.0); PLATELET COUNT,PLT 266 K/uL (150-350); RED BLOOD CELL COUNT 4.45 M/uL (3.77-5.09); WHITE BLOOD CELL COUNT,WBC 12.5 K/uL (4.0-10.2)
[2023-04-01] MEDS: Sodium Chloride 0.9% 1,000 ML IV ONE (16:04)
[2023-04-01 16:11] LABS: TSH ULTRASENSITIVE 2.461 mIU/mL (0.358-3.740)
[2023-04-01 16:44] LABS: ALBUMIN 3.8 g/dL (3.4-5.0); ANION GAP 13.8 meq/L (7-15); BILIRUBIN TOTAL 0.5 mg/dL (0.2-1.0); CALCIUM 9.5 mg/dL (8.5-10.1); CARBON DIOXIDE,CO2 29.4 mmol/L (21.0-32.0); CREATININE 1.06 mg/dL (0.51-1.17); EST CRCL DRUG DOSING (CG) 40.03 mL/min; POTASSIUM,K 3.2 mmol/L (3.5-5.1); PROTEIN TOTAL,TP 7.6 g/dL (6.4-8.2)
[2023-04-01 16:58] LABS: APPEARANCE,URINE CLOUDY; BILIRUBIN,URINE NEGATIVE (NEGATIVE); COLOR,URINE YELLOW; GLUCOSE,URINE NEGATIVE (NEGATIVE); KETONES,URINE NEGATIVE (NEGATIVE); LEUKOCYTE ESTERASE,URINE SMALL (NEGATIVE); NITRITE,URINE POSITIVE (NEGATIVE); OCCULT BLOOD,URINE NEGATIVE (NEGATIVE); PH,URINE 5.5 (5.0-9.0); PROTEIN,URINE TRACE mg/dL (NEGATIVE)
[2023-04-01 17:04] LABS: BACTERIA,URINE MANY /HPF (NONE TO FEW); RBC,URINE 0-5 /HPF; WBC,URINE >100 /HPF
[2023-04-01 17:05] LABS: EPITHELIAL CELLS,URINE MODERATE /LPF
[2023-04-01 17:23] VITALS: BP 131/78; PULSE 79
[2023-04-01] MEDS: Take Home: Nitrofurantoin Monohydrate/Macrocrystalline 100 MG, 6 Cap Pack PO ONE (17:29)
== END 2023-04-01 17:30 | disposition home or self-care (01) ==
LOC: LL.ED 15:15
DX: R55 Syncope and collapse (principal); I25.10 Atherosclerotic heart disease of native coronary artery without angina pectoris; E78.00 Pure hypercholesterolemia, unspecified; I11.0 Hypertensive heart disease with heart failure; I50.9 Heart failure, unspecified; J44.9 Chronic obstructive pulmonary disease, unspecified; E03.9 Hypothyroidism, unspecified; E66.9 Obesity, unspecified; Z68.43 Body mass index [BMI] 50.0-59.9, adult; Z88.1 Allergy status to other antibiotic agents; Z79.899 Other long term (current) drug therapy; Z79.82 Long term (current) use of aspirin
CPT/HCPCS: 36415; 71045; 80053; 81001; 82550; 83880; 84443; 84484; 85025; 87086; 87088; 87186; 93005; 93010; 96360; 99284; 99284-25; A9270-GY; J7030

== ENCOUNTER 2023-09-29 13:21 | Emergency (ER) | payer MEDICARE, MEDICAID ==
[2023-09-29 13:35] VITALS: BP 136/86; PULSE 79
[2023-09-29 13:58] LABS: BASOPHILS ABSOLUTE AUTO 0.06 K/uL (0.00-0.20); BASOPHILS PERCENT AUTO 0.6 % (0.0-2.0); EOSINOPHILS PERCENT AUTO 7.4 % (0.0-5.0); HEMATOCRIT 43.7 % (34.0-46.0); HEMOGLOBIN 14.2 g/dL (11.7-15.5); LYMPHOCYTES ABSOLUTE AUTO 2.12 K/uL (0.50-3.50); LYMPHOCYTES PERCENT AUTO 22.5 % (10.0-50.0); MEAN CORPUSCULAR HEMOGLOBIN 28.5 pg (28.2-33.3); MEAN CORPUSCULAR HGB CONC 32.5 g/dL (31.7-36.0); MEAN CORPUSCULAR VOLUME 87.8 fL (84.0-98.0); MONOCYTES ABSOLUTE AUTO 0.63 K/uL (0.00-1.00); MONOCYTES PERCENT AUTO 6.7 % (2.0-14.0); NEUTROPHILS PERCENT AUTO 62.8 % (45.0-80.0); PLATELET COUNT,PLT 179 K/uL (150-350); RED BLOOD CELL COUNT 4.98 M/uL (3.77-5.09); RED CELL DISTRIBUTION WIDTH 14.4 % (11.2-14.1); WHITE BLOOD CELL COUNT,WBC 9.4 K/uL (4.0-10.2)
[2023-09-29 14:21] LABS: CORONAVIRUS COVID-19 NAA NEGATIVE (NEGATIVE); INFLUENZA A NAA NEGATIVE (NEGATIVE); INFLUENZA B NAA NEGATIVE (NEGATIVE); RESPIRATORY SYNCYTIAL VIR NAA NEGATIVE (NEGATIVE)
[2023-09-29 14:23] LABS: ALBUMIN 3.8 g/dL (3.4-5.0); ANION GAP 8.9 meq/L (7-15); BILIRUBIN TOTAL 0.6 mg/dL (0.2-1.0); CALCIUM 9.3 mg/dL (8.5-10.1); CARBON DIOXIDE,CO2 26.1 mmol/L (21.0-32.0); CREATININE 0.84 mg/dL (0.51-1.17); EST CRCL DRUG DOSING (CG) 53.07 mL/min; MAGNESIUM 1.9 mg/dL (1.8-2.4); PROTEIN TOTAL,TP 7.6 g/dL (6.4-8.2)
[2023-09-29 15:24] LABS: APPEARANCE,URINE CLEAR; BILIRUBIN,URINE NEGATIVE (NEGATIVE); COLOR,URINE YELLOW; GLUCOSE,URINE NEGATIVE (NEGATIVE); KETONES,URINE NEGATIVE (NEGATIVE); LEUKOCYTE ESTERASE,URINE NEGATIVE (NEGATIVE); NITRITE,URINE NEGATIVE (NEGATIVE); OCCULT BLOOD,URINE NEGATIVE (NEGATIVE); PROTEIN,URINE NEGATIVE (NEGATIVE); UROBILINOGEN,URINE 0.2 E.U./dL (0.2-1.0)
== END 2023-09-29 15:30 | disposition home or self-care (01) ==
LOC: LL.ED 13:21
DX: R53.83 Other fatigue (principal); I11.0 Hypertensive heart disease with heart failure; I50.9 Heart failure, unspecified; I25.10 Atherosclerotic heart disease of native coronary artery without angina pectoris; E78.00 Pure hypercholesterolemia, unspecified; E11.9 Type 2 diabetes mellitus without complications; E03.9 Hypothyroidism, unspecified; J44.9 Chronic obstructive pulmonary disease, unspecified; M19.90 Unspecified osteoarthritis, unspecified site; Z88.1 Allergy status to other antibiotic agents; Z79.82 Long term (current) use of aspirin; Z79.84 Long term (current) use of oral hypoglycemic drugs; Z79.899 Other long term (current) drug therapy
CPT/HCPCS: 0241U; 36415; 80053; 81003; 83735; 85025; 99284

== ENCOUNTER 2024-05-03 14:55 | Emergency (ER) | payer MEDICARE, MEDICAID ==
[2024-05-03 15:14] LABS: BASOPHILS ABSOLUTE AUTO 0.07 K/uL (0.00-0.20); BASOPHILS PERCENT AUTO 0.5 % (0.0-2.0); EOSINOPHILS ABSOLUTE AUTO 0.47 K/uL (0.00-0.50); EOSINOPHILS PERCENT AUTO 3.6 % (0.0-5.0); HEMATOCRIT 41.8 % (34.0-46.0); HEMOGLOBIN 13.6 g/dL (11.7-15.5); LYMPHOCYTES ABSOLUTE AUTO 3.55 K/uL (0.50-3.50); LYMPHOCYTES PERCENT AUTO 27.4 % (10.0-50.0); MEAN CORPUSCULAR HEMOGLOBIN 28.2 pg (28.2-33.3); MEAN CORPUSCULAR HGB CONC 32.5 g/dL (31.7-36.0); MEAN CORPUSCULAR VOLUME 86.5 fL (84.0-98.0); MONOCYTES ABSOLUTE AUTO 1.13 K/uL (0.00-1.00); MONOCYTES PERCENT AUTO 8.7 % (2.0-14.0); NEUTROPHILS ABSOLUTE AUTO 7.75 K/uL (1.40-7.00); NEUTROPHILS PERCENT AUTO 59.8 % (45.0-80.0); PLATELET COUNT,PLT 284 K/uL (150-350); RED BLOOD CELL COUNT 4.83 M/uL (3.77-5.09); RED CELL DISTRIBUTION WIDTH 14.4 % (11.2-14.1)
[2024-05-03 15:41] LABS: ALANINE AMINOTRANSFERASE,ALT 28 U/L (12-78); ALBUMIN 3.6 g/dL (3.4-5.0); ALKALINE PHOSPHATASE 193 IU/L (46-116); ASPARTATE AMNIOTRANSFERASE,AST 14 U/L (15-37); BILIRUBIN TOTAL 0.4 mg/dL (0.2-1.0); BLOOD UREA NITROGEN,BUN 14 mg/dL (7-18); CALCIUM 9.5 mg/dL (8.5-10.1); CHLORIDE,CL 103 mmol/L (98-107); GLUCOSE RANDOM 102 mg/dL (70-99); MAGNESIUM 2.1 mg/dL (1.8-2.4); POTASSIUM,K 3.7 mmol/L (3.5-5.1); PROTEIN TOTAL,TP 7.7 g/dL (6.4-8.2); SODIUM,NA 142 mmol/L (136-145)
[2024-05-03 15:42] LABS: ESTIMATED GFR 57 mL/min (>=60)
[2024-05-03 15:43] LABS: PRO B-TYPE NATRIUR PEPT,BNPPRO 28 pg/mL (0-125)
[2024-05-03 16:15] VITALS: BP 110/74; PULSE 73
== END 2024-05-03 16:08 | disposition home or self-care (01) ==
LOC: LL.ED 14:55 → SUPCPDRO 14:55 → LL.ED 16:08
DX: F41.9 Anxiety disorder, unspecified (principal); R07.89 Other chest pain; I25.10 Atherosclerotic heart disease of native coronary artery without angina pectoris; I11.0 Hypertensive heart disease with heart failure; I50.9 Heart failure, unspecified; E78.00 Pure hypercholesterolemia, unspecified; Z95.0 Presence of cardiac pacemaker; J44.9 Chronic obstructive pulmonary disease, unspecified; K21.9 Gastro-esophageal reflux disease without esophagitis; M19.90 Unspecified osteoarthritis, unspecified site; E11.9 Type 2 diabetes mellitus without complications; E03.9 Hypothyroidism, unspecified; E66.9 Obesity, unspecified; Z90.49 Acquired absence of other specified parts of digestive tract; Z90.710 Acquired absence of both cervix and uterus; Z79.82 Long term (current) use of aspirin; Z79.84 Long term (current) use of oral hypoglycemic drugs; Z79.899 Other long term (current) drug therapy; Z88.1 Allergy status to other antibiotic agents; Z88.5 Allergy status to narcotic agent
CPT/HCPCS: 36415; 71045; 80053; 83735; 83880; 84484; 85025; 85610; 93005; 93010; 99284; 99285

== ENCOUNTER 2024-06-09 06:32 | Emergency (ER) | payer MEDICARE, MEDICAID ==
[2024-06-09 06:37] VITALS: BP 154/83; PULSE 95
== END 2024-06-09 09:03 ==
LOC: EEVIPCON 06:32 → LL.ED 06:32
DX: Z53.21 Procedure and treatment not carried out due to patient leaving prior to being seen by health care provider (principal)

== ENCOUNTER 2024-06-25 13:40 | Emergency (ER) | payer MEDICARE, MEDICAID ==
[2024-06-25] MEDS ORDERED: Sodium Chloride 0.9% 10 ML Syringe FLUSH PRN (13:42)
[2024-06-25 14:05] LABS: BASOPHILS PERCENT AUTO 0.8 % (0.0-2.0); EOSINOPHILS ABSOLUTE AUTO 0.47 K/uL (0.00-0.50); EOSINOPHILS PERCENT AUTO 3.8 % (0.0-5.0); HEMATOCRIT 43.2 % (34.0-46.0); HEMOGLOBIN 14.1 g/dL (11.7-15.5); IMMATURE GRAN ABSOLUTE AUTO 0.01 10^3/uL (0.00-0.50); IMMATURE GRAN PERCENT AUTO 0.1 % (0.0-5.0); LYMPHOCYTES ABSOLUTE AUTO 3.24 K/uL (0.50-3.50); LYMPHOCYTES PERCENT AUTO 25.9 % (10.0-50.0); MEAN CORPUSCULAR HGB CONC 32.6 g/dL (31.7-36.0); MEAN CORPUSCULAR VOLUME 85.9 fL (84.0-98.0); MONOCYTES ABSOLUTE AUTO 0.84 K/uL (0.00-1.00); MONOCYTES PERCENT AUTO 6.7 % (2.0-14.0); NEUTROPHILS ABSOLUTE AUTO 7.87 K/uL (1.40-7.00); NEUTROPHILS PERCENT AUTO 62.7 % (45.0-80.0); PLATELET COUNT,PLT 267 K/uL (150-350); RED BLOOD CELL COUNT 5.03 M/uL (3.77-5.09); RED CELL DISTRIBUTION WIDTH 13.4 % (11.2-14.1); WHITE BLOOD CELL COUNT,WBC 12.5 K/uL (4.0-10.2)
[2024-06-25 14:06] VITALS: BP 133/91; PULSE 78
[2024-06-25] MEDS ORDERED: LORazepam 1 MG Tab PO ONE (14:16)
[2024-06-25 14:29] LABS: LACTIC ACID 1.5 mmol/L (0.4-2.0)
[2024-06-25 14:38] LABS: ALANINE AMINOTRANSFERASE,ALT 29 U/L (12-78); ALBUMIN 3.9 g/dL (3.4-5.0); ALKALINE PHOSPHATASE 182 IU/L (46-116); ANION GAP 9.5 meq/L (7-15); ASPARTATE AMNIOTRANSFERASE,AST 16 U/L (15-37); BILIRUBIN TOTAL 0.6 mg/dL (0.2-1.0); BLOOD UREA NITROGEN,BUN 17 mg/dL (7-18); CALCIUM 10.1 mg/dL (8.5-10.1); CARBON DIOXIDE,CO2 31.5 mmol/L (21.0-32.0); CHLORIDE,CL 102 mmol/L (98-107); CREATININE 0.97 mg/dL (0.51-1.17); GLUCOSE RANDOM 101 mg/dL (70-99); MAGNESIUM 2.3 mg/dL (1.8-2.4); POTASSIUM,K 3.9 mmol/L (3.5-5.1); PRO B-TYPE NATRIUR PEPT,BNPPRO 34 pg/mL (0-125); PROTEIN TOTAL,TP 8.1 g/dL (6.4-8.2); SODIUM,NA 143 mmol/L (136-145)
[2024-06-25 14:39] LABS: ESTIMATED GFR 66 mL/min (>=60)
[2024-06-25] MEDS: Iopamidol 755 Mg/ML 100 ML Bottle IVPUSH ONE (15:39)
== END 2024-06-25 17:56 | disposition home or self-care (01) ==
LOC: LL.ED 13:40
DX: R07.89 Other chest pain (principal); R42 Dizziness and giddiness; F41.9 Anxiety disorder, unspecified; I25.10 Atherosclerotic heart disease of native coronary artery without angina pectoris; I11.0 Hypertensive heart disease with heart failure; I50.9 Heart failure, unspecified; J44.9 Chronic obstructive pulmonary disease, unspecified; E11.9 Type 2 diabetes mellitus without complications; E03.9 Hypothyroidism, unspecified; K21.9 Gastro-esophageal reflux disease without esophagitis; M19.90 Unspecified osteoarthritis, unspecified site; Z86.73 Personal history of transient ischemic attack (TIA), and cerebral infarction without residual deficits; Z95.0 Presence of cardiac pacemaker; Z79.82 Long term (current) use of aspirin; Z79.84 Long term (current) use of oral hypoglycemic drugs; Z79.899 Other long term (current) drug therapy; Z88.1 Allergy status to other antibiotic agents; Z88.8 Allergy status to other drugs, medicaments and biological substances
CPT/HCPCS: 36415; 51701; 71045; 71275; 80053; 83605; 83735; 83880; 84484; 85025; 85379; 93005; 99285; Q9967

== ENCOUNTER 2024-11-06 18:44 | Emergency (ER) | payer MEDICARE, MEDICAID ==
[2024-11-06 19:30] LABS: BASOPHILS ABSOLUTE AUTO 0.08 K/uL (0.00-0.20); BASOPHILS PERCENT AUTO 0.7 % (0.0-2.0); EOSINOPHILS ABSOLUTE AUTO 0.38 K/uL (0.00-0.50); EOSINOPHILS PERCENT AUTO 3.5 % (0.0-5.0); HEMOGLOBIN 13.6 g/dL (11.7-15.5); IMMATURE GRAN ABSOLUTE AUTO 0.01 10^3/uL (0.00-0.04); IMMATURE GRAN PERCENT AUTO 0.1 % (0.0-0.4); LYMPHOCYTES ABSOLUTE AUTO 2.66 K/uL (0.50-3.50); LYMPHOCYTES PERCENT AUTO 24.8 % (10.0-50.0); MEAN CORPUSCULAR HGB CONC 33.2 g/dL (31.7-36.0); MEAN CORPUSCULAR VOLUME 84.4 fL (84.0-98.0); MONOCYTES ABSOLUTE AUTO 0.73 K/uL (0.00-1.00); MONOCYTES PERCENT AUTO 6.8 % (2.0-14.0); NEUTROPHILS ABSOLUTE AUTO 6.87 K/uL (1.40-7.00); NEUTROPHILS PERCENT AUTO 64.1 % (45.0-80.0); PLATELET COUNT,PLT 216 K/uL (150-350); RED BLOOD CELL COUNT 4.86 M/uL (3.77-5.09); RED CELL DISTRIBUTION WIDTH 13.4 % (11.2-14.1); WHITE BLOOD CELL COUNT,WBC 10.7 K/uL (4.0-10.2)
[2024-11-06 19:35] LABS: ALANINE AMINOTRANSFERASE,ALT 17 U/L (12-78); ALBUMIN 3.5 g/dL (3.4-5.0); ALKALINE PHOSPHATASE 188 IU/L (46-116); ANION GAP 8.8 meq/L (7-15); ASPARTATE AMNIOTRANSFERASE,AST 11 U/L (15-37); BILIRUBIN TOTAL 0.5 mg/dL (0.2-1.0); BLOOD UREA NITROGEN,BUN 16 mg/dL (7-18); CALCIUM 9.1 mg/dL (8.5-10.1); CARBON DIOXIDE,CO2 29.2 mmol/L (21.0-32.0); CHLORIDE,CL 106 mmol/L (98-107); GLUCOSE RANDOM 99 mg/dL (70-99); POTASSIUM,K 3.6 mmol/L (3.5-5.1); SODIUM,NA 144 mmol/L (136-145)
[2024-11-06 19:54] LABS: ESTIMATED GFR 72 mL/min (>=60)
[2024-11-06 20:07] VITALS: BP 142/86; PULSE 79
== END 2024-11-06 20:20 | disposition home or self-care (01) ==
LOC: LL.ED 18:44
DX: R53.1 Weakness (principal); T50.995A Adverse effect of other drugs, medicaments and biological substances, initial encounter; I11.0 Hypertensive heart disease with heart failure; I50.9 Heart failure, unspecified; I25.10 Atherosclerotic heart disease of native coronary artery without angina pectoris; E03.9 Hypothyroidism, unspecified; E11.9 Type 2 diabetes mellitus without complications; Z95.0 Presence of cardiac pacemaker; Z88.1 Allergy status to other antibiotic agents; Z88.5 Allergy status to narcotic agent; Z79.890 Hormone replacement therapy; Z79.899 Other long term (current) drug therapy; Z79.84 Long term (current) use of oral hypoglycemic drugs; Z86.73 Personal history of transient ischemic attack (TIA), and cerebral infarction without residual deficits
CPT/HCPCS: 36415; 80053; 85025; 87428-QW; 99285

== ENCOUNTER 2025-02-10 06:41 | Emergency (ER) | payer MEDICARE, MEDICAID ==
[2025-02-10 07:34] LABS: BASOPHILS ABSOLUTE AUTO 0.08 K/uL (0.00-0.20); BASOPHILS PERCENT AUTO 0.8 % (0.0-2.0); EOSINOPHILS ABSOLUTE AUTO 0.37 K/uL (0.00-0.50); EOSINOPHILS PERCENT AUTO 3.9 % (0.0-5.0); IMMATURE GRAN ABSOLUTE AUTO 0.02 10^3/uL (0.00-0.04); IMMATURE GRAN PERCENT AUTO 0.2 % (0.0-0.4); LYMPHOCYTES ABSOLUTE AUTO 2.20 K/uL (0.50-3.50); LYMPHOCYTES PERCENT AUTO 23.4 % (10.0-50.0); MONOCYTES ABSOLUTE AUTO 0.71 K/uL (0.00-1.00); MONOCYTES PERCENT AUTO 7.5 % (2.0-14.0); NEUTROPHILS ABSOLUTE AUTO 6.04 K/uL (1.40-7.00); NEUTROPHILS PERCENT AUTO 64.2 % (45.0-80.0); PLATELET COUNT,PLT 263 K/uL (150-350); RED BLOOD CELL COUNT 4.75 M/uL (3.77-5.09); RED CELL DISTRIBUTION WIDTH 13.5 % (11.2-14.1); WHITE BLOOD CELL COUNT,WBC 9.4 K/uL (4.0-10.2)
[2025-02-10 08:12] LABS: ALANINE AMINOTRANSFERASE,ALT 26.0 U/L (12-78); ASPARTATE AMNIOTRANSFERASE,AST 17.0 U/L (15-37); BILIRUBIN TOTAL 0.5 mg/dL (0.2-1.0); BLOOD UREA NITROGEN,BUN 18.0 mg/dL (7-18); CARBON DIOXIDE,CO2 27.6 mmol/L (21.0-32.0); CHLORIDE,CL 104.0 mmol/L (98-107); CREATININE 1.03 mg/dL (0.51-1.17); EST CRCL DRUG DOSING (CG) 42.73 mL/min; GLUCOSE RANDOM 128.0 mg/dL (70-99); POTASSIUM,K 3.7 mmol/L (3.5-5.1); PROTEIN TOTAL,TP 7.2 g/dL (6.4-8.2); SODIUM,NA 142.0 mmol/L (136-145)
[2025-02-10 08:23] LABS: ESTIMATED GFR 61.0 mL/min (>=60)
[2025-02-10 08:54] VITALS: BP 137/90; PULSE 71
== END 2025-02-10 09:50 ==
LOC: SUPCPDRO 06:41 → LL.ED 06:41
DX: T18.5XXA Foreign body in anus and rectum, initial encounter (principal); I11.0 Hypertensive heart disease with heart failure; I50.9 Heart failure, unspecified; E78.00 Pure hypercholesterolemia, unspecified; K21.9 Gastro-esophageal reflux disease without esophagitis; E11.9 Type 2 diabetes mellitus without complications; E03.9 Hypothyroidism, unspecified; Z88.1 Allergy status to other antibiotic agents; Z88.8 Allergy status to other drugs, medicaments and biological substances; Z79.890 Hormone replacement therapy; Z79.82 Long term (current) use of aspirin; Z79.84 Long term (current) use of oral hypoglycemic drugs; Z79.899 Other long term (current) drug therapy; Z90.49 Acquired absence of other specified parts of digestive tract; Z90.710 Acquired absence of both cervix and uterus; X58.XXXA Exposure to other specified factors, initial encounter
CPT/HCPCS: 36415; 72170; 80053; 85025; 99285